=== PATIENT | male | born 1980 | race Caucasian/White ===

== ENCOUNTER 2019-04-27 11:34 | Emergency (ER) | payer SELFPAY ==
[~2019-04-27] VITALS: Ht 167.6 cm; Wt 80.9 kg
[~2019-04-27 11:34] MED LIST: CYCL10TA7 PO; IBUP-1542 PO
[2019-04-27 11:46] VITALS: BP 172/76; PULSE 78; RESP 18; Ht 167.6 cm; Wt 80.9 kg
[2019-04-27] MEDS ORDERED: IBUPROFEN 800 MG TAB PO ONE (12:30)
== END 2019-04-27 13:47 | disposition home or self-care (01) ==
LOC: FTE 11:34
DX: S20.219A Contusion of unspecified front wall of thorax, initial encounter (principal); S49.92XA Unspecified injury of left shoulder and upper arm, initial encounter; F17.210 Nicotine dependence, cigarettes, uncomplicated; V00.831A Fall from motorized mobility scooter, initial encounter
CPT/HCPCS: 71100; 73030